=== PATIENT | male | born 1975 | race Caucasian/White ===

== ENCOUNTER 2022-12-06 16:39 | Outpatient (CLI) | payer OTHER, SELFPAY ==
--- NOTE | 2022-12-29 20:07 | WPDHOMESLEEP ---
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 The patient rarely awakens from sleep short of breath. He constantly awakens at night with heartburn, belching cough. He frequently snores loudly enough others complain. He rarely has trouble sleeping when he has a cold. He denies waking up gasping for air throughout the night. He occasionally has breathing problems at night observed by himself or others. He denies sweating excessively at night. He occasionally has heart palpitations or irregular heartbeats during the night. He occasionally falls asleep during the day but never while driving. He denies sleep paralysis, cataplexy and hypnagogic/ hypnopompic hallucinations. He rarely has trouble at school or work due to sleepiness. He denies feeling afraid of going to sleep. He denies having nightmares. He rarely remembers his dreams. He constantly has thoughts racing through his mind. He frequently feels sad or depressed. He constantly has anxiety. He occasionally has muscular tension. He frequently notices parts of his body jerk. He rarely kicks during the night. He occasionally experiences aching feelings in his legs and occasionally has leg pain during the night. He denies grinding his teeth during sleep and denies awakening with morning jaw pain. He is frequently bothered by pain during the day but rarely awakened by pain during the night. He constantly wakes up feeling stiff in morning. He occasionally wakes up with sore achy muscles. He rarely wakes up with pain in the neck, spine or other joints. He goes to bed at midnight on both weekdays and weekends. It takes him less than 10 minutes to fall asleep. He wakes up 2-3 times throughout the night to urinate. He is able back asleep within 5 minutes. He wakes up at 6:00 a.m. on both weekdays and weekends. He typically gets 4-6 hours of sleep per night. He will stay in bed for 1-2 minutes after waking up in the morning. He currently lives with his and 18 old child. He does not consume any caffeinated beverages within 2 hours of bedtime. He does not engage in physical exercise before bedtime. He will read on his phone and watch television before falling asleep. He will occasionally take naps in the afternoon or the evening and they are occasionally refreshing. He does not consume any caffeinated beverages throughout the day. He denies tobacco, alcohol and recreational drug use. [facility] Family History Family History Mother Family history of elevated blood lipids Lupus COPD (chronic obstructive pulmonary disease) Grandparent Family history of coronary artery disease Father COPD (chronic obstructive pulmonary disease) Sleep apnea Liver disease Social History Social History Smoking status: Never smoker Second hand tobacco smoke exposure: No Alcohol intake: current Drinks per week: 0 Alcohol use details: socially very rare Substance use: never Living arrangements: with family Occupation/Education: occupation Additional occupation/education comments: [employer] Gender identity (if verbalized by the patient): Male Sexual Orientation (if Verbalized by the Patient): Straight or Heterosexual Spiritual care concerns: No Medications Home Medications Medication Instructions Recorded Confirmed Type omeprazole 40 mg capsule,delayed 40 mg PO DAILY #90
[2022-12-29 20:21] VITALS: BMI 45.0
== END 2022-12-07 10:10 | disposition home or self-care (01) ==
LOC: ANHCSM 16:40
PROVIDERS: PCP Internal Medicine; Visit Provider Internal Medicine Endocrinology, Diabetes & Metabolism
DX: G47.33 Obstructive sleep apnea (adult) (pediatric) (principal); F41.8 Other specified anxiety disorders
CPT/HCPCS: 95800

== ENCOUNTER 2023-05-22 09:48 | Emergency (ER) | payer OTHER, SELFPAY ==
[2023-05-22 09:58] VITALS: BP 117/67; PULSE 94; RESP 18; TEMP 36.6; O2SAT 96
[2023-05-22 09:59] VITALS: BP 117/67; PULSE 94; RESP 18; TEMP 36.6; O2SAT 96
--- NOTE | 2023-05-22 10:23 | ED.GENADULT ---
HPI - General Adult General Chief complaint: Nausea/Vomiting/Diarrhea Stated complaint: Dizziness/Vomiting/Fatigue Time Seen by Provider: 05/22/23 10:23 Source: patient, RN notes reviewed and old records reviewed Mode of arrival: ambulatory Limitations: no limitations History of Present Illness HPI narrative: 47 year old male [facility] with complaints of becoming ill at work on Saturday with nausea and vomiting, headache and becoming dizzy, and he was sent home due to his symptoms. 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 Patient reports that he has had extreme fatigue with continued intermittent nausea and he did awake with headache this morning which has resolved. Patient reports that he works in heat and tries to hydrate as well as possible. Patient reports that he has drank some Pedialyte. MD complaint: nausea vomiting, dizziness headache at work 2 days ago still not feeling we Onset (ago): day(s) (day 3 of symptoms) Associated symptoms: headaches, nausea/vomiting, weakness and other (fatigue) Treatments prior to arrival: other (pedialyte and fluids) Related Data Allergies Allergy/AdvReac Type Severity Reaction Status Date / Time Penicillins Allergy Unknown unknown Verified 05/22/23 09:58 Review of Systems Review of Systems: CONSTITUTIONAL: Denies fever, chills, or sweats. EYES: Denies visual changes, redness, or discharge. ENT: Denies rhinorrhea, congestion, sore throat, or otalgia. CARDIOVASCULAR: Denies chest pain, palpitations, or edema. RESPIRATORY: Denies cough or dyspnea. GASTROINTESTINAL: Denies abdominal pain,positive for episodes of nausea and vomiting, no diarrhea. GENITOURINARY: Denies dysuria or hematuria. SKIN: Denies rash or itching. MUSCULOSKELETAL: Denies back pain, joint pain, or myalgia. NEUROLOGIC: reports intermittent headache,no numbness, reports feelings of weakness and extreme fatigue, dizziness on Saturday none since. PSYCHIATRIC: Denies anxiety or depression. All systems reviewed & are unremarkable except as noted in HPI and below PMFSH Past Medical History Medical History (Updated 05/23/23 @ 08:53 by Gloria Ashraf NP) GERD (gastroesophageal reflux disease) KYLE (obstructive sleep apnea) Surgical History Surgical History (Updated 05/23/23 @ 08:43 by Gloria Ashraf NP) History of hip replacement, total left Family History Family History Mother Family history of elevated blood lipids Lupus COPD (chronic obstructive pulmonary disease) Grandparent Family history of coronary artery disease Father , age 59, liver disease COPD (chronic obstructive pulmonary disease) Sleep apnea Liver disease Sibling Unknown whether patient has any health problems Social History Social History Smoking status: Never smoker Second hand tobacco smoke exposure: No Alcohol intake: current Drinks per week: 0 Alcohol use details: socially very rare Substance use: never Substance use type: does not use Living arrangements: with family Occupation/Education: occupation Additional occupation/education comments: [employer] Gender identity (if verbalized by the patient): Male Sexual Orientation (if Verbalized by the Patient): Straight or Heterosexual Spiritual care concerns: No Comments At time of signature, agree with nursing past medical, surgical, social and family history. There is no relevant family history pertinent to the presenting complaint Exam Narrative: GENERAL: Well-appearing, well-nourished,obese, and in no acute distress. HEAD: Normocephalic, atraumatic. EYES: PERRLA and EOMI. ENT: Nares clear, no rhinorrhea or epistaxis. Mucous membranes moist.TM's normal, throat pink with no swelling NECK: Supple. no lymphadenopathy CHEST: Clear to
== END 2023-05-22 10:56 | disposition home or self-care (01) ==
PROVIDERS: Emergency Provider Registered Nurse; PCP Internal Medicine
DX: R11.2 Nausea with vomiting, unspecified (principal); T67.5XXA Heat exhaustion, unspecified, initial encounter; X30.XXXA Exposure to excessive natural heat, initial encounter; K21.9 Gastro-esophageal reflux disease without esophagitis
CPT/HCPCS: 81003; 99213; G0463

== ENCOUNTER 2023-06-26 18:53 | Emergency (ER) | payer OTHER, SELFPAY ==
--- NOTE | 2023-06-26 18:59 | ED.URI ---
HPI - URI/Sore Throat General Chief Complaint: Upper Respiratory Infection Stated Complaint: Lethargic, Dizzy, Headache, Sinus Problems Time Seen by Provider: 06/26/23 19:14 Source: patient and RN notes reviewed Mode of arrival: ambulatory Limitations: no limitations History of Present Illness HPI Narrative: 48-year-old male presents with concern for 10 day history of fatigue, body aches, headache, dizziness when he turns his head, sinus congestion. He reports occasional cough. He denies taking any medications for his symptoms. He denies chest pain the, shortness of breath, thunderclap headache, weakness in any extremity MD elicited complaint: nasal congestion and sinus pain Related Data Home Medications Medication Instructions Recorded Confirmed semaglutide 7 mg tablet (Rybelsus) mg PO 06/26/23 Allergies Allergy/AdvReac Type Severity Reaction Status Date / Time Penicillins Allergy Unknown unknown Verified 05/22/23 09:58 Review of Systems Review of Systems: CONSTITUTIONAL: Reports malaise, fatigue. Denies chills, sweats, or fever. EYES: Denies visual changes, redness, or discharge. ENT: Reports rhinorrhea, congestion, sinus pain, otalgia. Denies sore throat. CARDIOVASCULAR: Denies chest pain, palpitations, or edema. RESPIRATORY: Reports occasional cough. Denies dyspnea. GASTROINTESTINAL: Denies abdominal pain, nausea, vomiting, diarrhea SKIN: Denies rash or itching. MUSCULOSKELETAL: Reports myalgia. NEUROLOGIC: Reports headache. All systems reviewed & are unremarkable except as noted in HPI and below PMFSH Past Medical History Medical History (Updated 06/26/23 @ 19:23 by Tori Gerber NP) GERD (gastroesophageal reflux disease) KYLE (obstructive sleep apnea) Surgical History Surgical History (Updated 05/23/23 @ 08:43 by Gloria Ashraf NP) History of hip replacement, total left Family History Family History Mother Family history of elevated blood lipids Lupus COPD (chronic obstructive pulmonary disease) Grandparent Family history of coronary artery disease Father , age 59, liver disease COPD (chronic obstructive pulmonary disease) Sleep apnea Liver disease Sibling Unknown whether patient has any health problems Social History Social History Smoking status: Never smoker Second hand tobacco smoke exposure: No Alcohol intake: current Drinks per week: 0 Alcohol use details: socially very rare Substance use: never Substance use type: does not use Living arrangements: with family Occupation/Education: occupation Additional occupation/education comments: [employer] Gender identity (if verbalized by the patient): Male Sexual Orientation (if Verbalized by the Patient): Straight or Heterosexual Spiritual care concerns: No Comments At time of signature, agree with nursing past medical, surgical, social and family history. There is no relevant family history pertinent to the presenting complaint Exam Narrative: GENERAL: Nontoxic-appearing and in no acute distress. HEAD: Normocephalic EYES: PERRLA, conjunctivae clear ENT: Nares clear, turbinates edematous and erythematous, sinus tenderness. Mucous membranes moist. TM pearly warner with dull light reflex bilaterally; no tragal tenderness. Oropharynx not erythematous without lesions. Tonsils not enlarged and without exudate, no drooling, no hoarseness, no trismus, uvula midline. NECK: Supple. No lymphadenopathy CHEST: Clear to auscultation, breath sounds equal. No wheezing, rhonchi, rales, or stridor. No respiratory distress, speaks in full sentences. HEART: Regular rate and rhythm. No murmur heard. SKIN: Warm, dry, no rash. NEURO: Alert and oriented x3. PSYCH: Normal mood and affect Course Course Emergency Course: Patient is aware of diagnosis, understands and agrees to treatment p
[2023-06-26 19:03] VITALS: BP 130/79; PULSE 84; RESP 16; TEMP 37.5; O2SAT 96
== END 2023-06-26 19:31 | disposition home or self-care (01) ==
PROVIDERS: Emergency Provider Nurse Practitioner
DX: J01.90 Acute sinusitis, unspecified (principal); Z20.822 Contact with and (suspected) exposure to COVID-19; K21.9 Gastro-esophageal reflux disease without esophagitis; Z96.642 Presence of left artificial hip joint
CPT/HCPCS: 87426; 87804; 99213; C9803; G0463